=== PATIENT | female | born 1960 | race Caucasian/White ===

== ENCOUNTER 2021-10-16 13:14 | Outpatient (CLI) | payer OTHER | END 2021-10-16 13:15 | disposition home or self-care (01) | LOC: CSHMAMMO 13:14 | PROVIDERS: ATTEND Family Medicine | DX: R92.8 Other abnormal and inconclusive findings on diagnostic imaging of breast (principal) | CPT/HCPCS: 77066; G0279 ==

== ENCOUNTER 2021-11-13 09:39 | Outpatient (CLI) | payer OTHER | END 2021-11-13 09:40 | disposition home or self-care (01) | LOC: CSHMRI 09:39 | PROVIDERS: ATTEND Orthopaedic Surgery | DX: S46.011A Strain of muscle(s) and tendon(s) of the rotator cuff of right shoulder, initial encounter (principal); S43.431A Superior glenoid labrum lesion of right shoulder, initial encounter; M25.411 Effusion, right shoulder; M19.011 Primary osteoarthritis, right shoulder ==

== ENCOUNTER 2024-04-27 09:48 | Outpatient (CLI) | payer OTHER | END 2024-04-27 09:49 | disposition home or self-care (01) | LOC: CSHRAD 09:48 | PROVIDERS: ATTEND Nurse Practitioner Family | DX: R91.1 Solitary pulmonary nodule (principal); J43.9 Emphysema, unspecified; J21.9 Acute bronchiolitis, unspecified | CPT/HCPCS: 71250 ==

== ENCOUNTER 2025-07-13 11:36 | Day surgery (SDC) | payer OTHER ==
[2025-06-24 09:31] VITALS: BMI 25.0
[2025-07-13] MEDS ORDERED: Ropivacaine 0.2% 550 ML 550 ML NERVE BLCK SCH (12:30)
[2025-07-13] MEDS ORDERED: Ondansetron PF 4 MG/2 ML Vial IVP PRN (12:30)
[2025-07-13] MEDS ORDERED: Lidocaine 1% PF 5 ML VIAL ONE (14:12)
[2025-07-13] MEDS ORDERED: PROPOFOL 20 ML ONE (14:12)
[2025-07-13] MEDS ORDERED: PHENYLEPHRINE-NS 100 MCG/ML 10 ML SYRINGE ONE (14:46)
[2025-07-13] MEDS ORDERED: LevoFLOXacin D5W 500 mg (100 mL) BAG ONE (14:59)
[2025-07-13] MEDS ORDERED: Ondansetron PF 4 MG/2 ML Vial ONE (15:11)
[2025-07-13] MEDS ORDERED: Ketorolac Tromethamine 30 MG (1 mL) VIAL ONE (17:10)
== END 2025-07-13 17:45 | disposition home or self-care (01) ==
LOC: CSHSDC 11:36
PROVIDERS: ATTEND Podiatrist Foot & Ankle Surgery
DX: M20.12 Hallux valgus (acquired), left foot (principal); M21.622 Bunionette of left foot; E78.2 Mixed hyperlipidemia; F32.A Depression, unspecified; E03.9 Hypothyroidism, unspecified; Z88.5 Allergy status to narcotic agent; Z88.0 Allergy status to penicillin; Z88.8 Allergy status to other drugs, medicaments and biological substances; Z79.890 Hormone replacement therapy; Z79.899 Other long term (current) drug therapy
CPT/HCPCS: A4306; C1713; C1769; C1776; J0665; J1100; J1885; J1956; J2405; J2704; J2795; J3010